=== PATIENT | female | born 1990 ===

== ENCOUNTER 2018-07-18 19:05 | Emergency (ER) | payer BC ==
[2018-07-18 19:24] VITALS: O2SAT 100
[2018-07-18] MEDS ORDERED: Sodium Chloride 0.9% 1,000 ML IV STA (20:12)
--- NOTE | 2018-07-18 20:15 | ED PDOC ---
HPI:Nausea, Vomiting, Diarrhea Time Seen by Provider: 07/18/18 19:58 Chief Complaint (Nursing): GI Problem Chief Complaint (Provider): vomiting History Per: Patient History/Exam Limitations: no limitations Onset/Duration Of Symptoms: Hrs Current Symptoms Are (Timing): Still Present Additional Complaint(s): 27 y/o female, approximately 19 weeks and 6 days , presents for evaluation of 4 episodes of non bilious vomiting today. Denies fever, headache , dizziness, chest pain, shortness of breath, abdominal pain, vaginal bleeding/ discharge, urinary symptoms. Past Medical History Reviewed: Historical Data, Nursing Documentation, Vital Signs Vital Signs: Last Vital Signs Temp 98.4 F 07/18/18 19:22 Pulse 99 H 07/18/18 19:22 Resp 18 07/18/18 19:22 BP 126/82 07/18/18 19:22 Pulse Ox 100 07/18/18 19:22 - Medical History PMH: No Chronic Diseases - Surgical History Surgical History: No Surg Hx - Family History Family History: States: No Known Family Hx - Living Arrangements Living Arrangements: With Family - Home Medications Home Medications: Ambulatory Orders Medication Instructions Recorded Doxylamine/Pyridoxine HCl (B6) 1 - 2 each PO HS #16 tablet. 07/18/18 [Gabriela Hatfield 10-10 mg Tablet] - Allergies Allergies/Adverse Reactions: Allergies Allergy/AdvReac Type Severity Reaction Status Date / Time No Known Allergies Allergy Verified 07/18/18 19:22 Review of Systems ROS Statement: Except As Marked, All Systems Reviewed And Found Negative Gastrointestinal: Positive for: Nausea, Vomiting Physical Exam - Reviewed Nursing Documentation Reviewed: Yes Vital Signs Reviewed: Yes - Physical Exam Appears: Positive for: Well, Non-toxic, No Acute Distress Head Exam: Positive for: ATRAUMATIC, NORMAL INSPECTION, NORMOCEPHALIC Skin: Positive for: Normal Color Eye Exam: Positive for: Normal appearance ENT: Positive for: Normal ENT Inspection Cardiovascular/Chest: Positive for: Regular Rate, Rhythm Respiratory: Positive for: Normal Breath Sounds Gastrointestinal/Abdominal: Positive for: Normal Exam, Bowel Sounds, Soft. Negative for: Tenderness Back: Positive for: Normal Inspection Extremity: Positive for: Normal ROM Neurologic/Psych: Positive for: Alert, Oriented (x3) - Laboratory Results Result Diagrams: 07/18/18 20:44 09/20/18 20:44 - ECG O2 Sat by Pulse Oximetry: 100 - Progress ED Course And Treament: labs, urine, IV fluids, IV zofran On re-eval, patient states she is feeling better. Tolerating PO Patient educated on findings, discharged with rx Gabriela Advised fluids, rest. Advised follow up ObGyn 2-3 days Return precautions given Patient requires no further intervention in the ED and is stable for discharge at this time Disposition - Clinical Impression Clinical Impression: Nausea and vomiting during - Patient ED Disposition Is Patient to be Admitted: No Counseled Patient/Family Regarding: Studies Performed, Diagnosis, Need For Followup, Rx Given - Disposition Disposition: Routine/Home Disposition Time: 22:16 Condition: IMPROVED Prescriptions: Doxylamine/Pyridoxine HCl (B6) [Gabriela Hatfield 10-10 mg Tablet] 1 - 2 each PO HS # 16 tablet. Instructions: Nausea and Vomiting of Forms: [facility] (Irish)
[2018-07-18 21:06] LABS: BASO % 0.3 % (0.0-2.0); EOS # 0.1 K/uL (0.0-0.7); EOS % 0.5 % (0.0-4.0); HEMOGLOBIN 11.9 g/dL (12.0-16.0); LYMPH # 1.2 K/uL (1.0-4.3); LYMPH % 9.8 % (20.0-40.0); MEAN CELL VOLUME 93.8 fl (81.0-99.0); MEAN CORPUSCULAR HEMOGLOBIN 31.6 pg (27.0-31.0); MEAN CORPUSCULAR HGB CONC 33.7 g/dL (33.0-37.0); MEAN PLATELET VOLUME 8.4 fl (7.2-11.7); MONO # 1.2 K/uL (0.0-0.8); MONO % 9.8 % (0.0-10.0); NEUT # 9.6 K/uL (1.8-7.0); NEUT % 79.6 % (50.0-75.0); NRBC % 0.1 % (0.0-0.0); PLATELET COUNT 207 K/uL (130-400); RBC 3.77 Mil/uL (3.80-5.20); RED CELL DISTRIBUTION WIDTH 13.4 % (11.5-14.5)
[2018-07-18 21:24] LABS: ALBUMIN 3.9 g/dL (3.5-5.0); ALT/SGPT 22 U/L (9-52); AST/SGOT 18 U/L (14-36); BLOOD UREA NITROGEN 7 mg/dl (7-17); CALCIUM 9.6 mg/dL (8.4-10.2); GFR NON-AFRICAN AMERICAN > 60
[2018-07-18 22:10] LABS: BANDS 1 % (0-2); LYMPHOCYTE 12 % (20-50); MONOCYTE 10 % (0-10); NEUTROPHIL 77 % (42-75); PLATELET ESTIMATE NORMAL (NORMAL); TOTAL CELLS COUNTED 100
[2018-07-18 22:11] LABS: ANISOCYTOSIS SLIGHT; OVALOCYTES SLIGHT
[2018-07-18 22:20] VITALS: BP 109/56; PULSE 83; RESP 16; TEMP 98.2
== END 2018-07-18 22:31 | disposition home or self-care (01) ==
LOC: H.ER 19:05
DX: O21.9 Vomiting of pregnancy, unspecified (principal); Z3A.19 19 weeks gestation of pregnancy
CPT/HCPCS: 80053; 85025; 96360; 99284; J2405; J7030

== ENCOUNTER 2018-08-21 15:24 | Emergency (ER) | payer BC ==
[2018-08-21 17:00] VITALS: BMI 29.8
[2018-08-21] MEDS: Lactated Ringer's 1,000 ML IV SCH ×2 (18:30→20:00)
[2018-08-21 19:12] LABS: BASO # 0.1 K/uL (0.0-0.2); BASO % 0.4 % (0.0-2.0); EOS % 0.1 % (0.0-4.0); HEMOGLOBIN 11.8 g/dL (12.0-16.0); LYMPH # 0.9 K/uL (1.0-4.3); LYMPH % 5.6 % (20.0-40.0); MEAN CELL VOLUME 94.6 fl (81.0-99.0); MEAN CORPUSCULAR HEMOGLOBIN 31.7 pg (27.0-31.0); MEAN CORPUSCULAR HGB CONC 33.5 g/dL (33.0-37.0); MONO # 0.5 K/uL (0.0-0.8); MONO % 3.3 % (0.0-10.0); NEUT # 14.8 K/uL (1.8-7.0); NEUT % 90.6 % (50.0-75.0); NRBC % 0.1 % (0.0-0.0); PLATELET COUNT 177 K/uL (130-400); RBC 3.73 Mil/uL (3.80-5.20); RED CELL DISTRIBUTION WIDTH 13.6 % (11.5-14.5); WHITE BLOOD COUNT 16.3 K/uL (4.8-10.8)
[2018-08-21 19:14] LABS: ALBUMIN 3.9 g/dL (3.5-5.0); ALT/SGPT 19 U/L (9-52); AST/SGOT 20 U/L (14-36); BLOOD UREA NITROGEN 11 mg/dl (7-17); CALCIUM 9.1 mg/dL (8.4-10.2); GFR NON-AFRICAN AMERICAN > 60
[2018-08-21] MEDS: Promethazine 12.5 MG in Sodium Chloride 0.9% 50 ML IVPB ONE (21:00)
[2018-08-21 21:38] LABS: ANISOCYTOSIS SLIGHT; BANDS 4 % (0-2); LYMPHOCYTE 8 % (20-50); MONOCYTE 4 % (0-10); NEUTROPHIL 84 % (42-75); PLATELET ESTIMATE NORMAL (NORMAL); TOTAL CELLS COUNTED 100
[2018-08-21 21:56] LABS: SQUAMOUS EPITHIAL 10 /hpf (0-5); URINE BACTERIA MOD (<OCC); URINE BILIRUBIN NEGATIVE (NEGATIVE); URINE BLOOD MODERATE (NEGATIVE); URINE CLARITY CLOUDY (Clear); URINE COLOR YELLOW (YELLOW); URINE GLUCOSE (UA) NEG (Normal); URINE LEUKOCYTE ESTERASE NEG Leu/uL (Negative); URINE PROTEIN NEGATIVE (NEGATIVE); URINE UROBILINOGEN 0.2-1.0 mg/dL (0.2-1.0)
--- NOTE | 2018-08-21 22:37 | OBHP ---
Datetime: 08/21/2018 22:23 IP Adm Impression: , intrauterine IP Admit Plan: Observation/Evaluation; Discharge home Admit Comment, IP Provider: S: presents at 24.3 (confirmed by LMP) for vomiting which began a f ew hours prior to presentation. Patient reports feeling comfortable now and states she is in no pain and last episode of vomitus was an hour ago , green in color. O: Vitally stable. Abdomen: gravid. NOn-tender to palpation. Soft. A/P: 27 yo presents at 24.3 (confirmed by LMP) for vomiting which began a few hours prior to presentation - U/A- evidence of RBC's, equivical for UTI - Patient stable for discharge with a script for antibiotic. Will follow up with Dr. Palomino in the office in 2 weeks for repeat U/A. Discussed with Dr. Palomino --Racquel Thakur, PGY1 Visual Aid Expert. Patient was seen with the resident I agree with the note Prescription for Macrobid provided patient counseled regarding potential stone Patient encouraged to increase by mouth hydration Follow-up in office in 1 week EGA AdmitDate IP: 24.3 Vital Signs Provider: Reviewed; Within Normal Limits IP Chief Complaint: Illness; Maternal discomfort Datetime: 08/21/2018 19:57 Abdomen - PN: Normal Datetime: 08/21/2018 18:24 Pelvic Type - PN: Not Done Extremities - PN: Normal Back - PN: Normal Breast - PN: Not Done Lungs - PN: Normal Heart - PN: Normal Thyroid - PN: Not Done Neurologic - PN: Not Done HEENT - PN: Not Done General - PN: Normal FHR - Baseline A Provider: 140 [facility] Variability Prov Fetus A: Moderate 6-25bpm N[facility] Accel Fetus A IP Provider: [id number] FHR Category Provider Fetus A: Category I [facility] Decel Fetus A IP Provider: None Genitourinary Exam: Not Done DTRs - PN: Normal
[2018-08-22 05:02] VITALS: BP 118/68; PULSE 107
[2018-08-24 12:54] VITALS: RESP 18; TEMP 98.2; O2SAT 100
== END 2018-08-21 22:40 | disposition home or self-care (01) ==
LOC: H.EROB2 15:24
DX: O21.0 Mild hyperemesis gravidarum (principal); Z3A.24 24 weeks gestation of pregnancy
CPT/HCPCS: 80053; 81003; 83690; 85025; 96360; 96365; 96374; 99283; J2405; J2550; J7120